=== PATIENT | female | born 1980 | race American Indian/Alaskan Native ===

== ENCOUNTER 2017-09-19 00:45 | Emergency (ER) | payer OTHER ==
[2017-09-19] MEDS ORDERED: ASPIRIN PO ONE (01:23)
[2017-09-19 01:59] LABS: Basophils # (Auto) 0.1 K/mm3 (0.0-0.1); Basophils % (Auto) 0.5 % (0.0-1.8); Eosinophils # (Auto) 0.3 K/mm3 (0.0-0.4); Eosinophils % (Auto) 2.3 % (0.0-4.3); Hematocrit 35.8 % (30.3-42.9); Hemoglobin 11.4 gm/dl (10.1-14.3); Lymphocytes % (Auto) 23.8 % (13.4-35.0); Mean Corpuscular HGB Conc 32 % (30-34); Mean Corpuscular Hemoglobin 27 pg (28-32); Mean Corpuscular Volume 85 fl (79-97); Monocytes # (Auto) 0.8 K/mm3 (0.0-0.8); Monocytes % (Auto) 6.4 % (0.0-7.3); Platelet Count 357 K/mm3 (140-440); Red Blood Count 4.22 M/mm3 (3.65-5.03); Red Cell Distribution Width 16.1 % (13.2-15.2)
[2017-09-19 02:18] LABS: BUN/Creatinine Ratio 13; Blood Urea Nitrogen 10 mg/dL (7-17); Calcium 8.7 mg/dL (8.4-10.2); Hemolysis Index 0
--- NOTE | 2017-09-19 03:50 | XRay Report ---
FINAL REPORT PROCEDURE: XR CHEST ROUTINE 2V TECHNIQUE: PA and lateral chest radiographs were obtained. CPT 17651 HISTORY: chest pain COMPARISON: No prior studies are available for comparison. FINDINGS: Heart: Normal. Mediastinum/Vessels: Normal. Lungs/Pleural space: Normal. Bony thorax: No acute osseous abnormality. Other: IMPRESSION: Normal examination.
[2017-09-19] MEDS ORDERED: LASIX PO ONE (04:09)
[2017-09-19] MEDS ORDERED: HCTZ PO ONE (04:09)
[2017-09-19] MEDS ORDERED: NORVASC PO ONE (04:09)
--- NOTE | 2017-09-19 05:07 | Emergency Department Report ---
ED Chest Pain HPI - General Chief Complaint: Chest Pain Stated Complaint: CP Time Seen by Provider: 09/19/17 02:45 Source: patient Mode of arrival: Ambulatory Limitations: No Limitations - History of Present Illness Initial Comments: 3 wks of intermittent bilateral CP that is nonradiating, nonexertional, nonpleuritic. Her legs have become more swollen lately. It is associated with shortness of breath. Smokes. No fam hx of ACS. Denies drinking or drug use. Severity scale (0 -10): 5 - Related Data Home Medications Medication Instructions Recorded Confirmed Last Taken Amlodipine Besylate 10 mg PO DAILY 04/06/14 04/06/14 04/05/14 19:00 Potassium Citrate [Potassium 15 meq PO DAILY 04/06/14 04/06/14 04/05/14 19:00 Citrate ER] Triamterene/Hydrochlorothiazid 1 tab PO DAILY 04/06/14 04/06/14 04/05/14 19:00 [Triamterene-Hctz 37.5-25 mg] acetaZOLAMIDE [Acetazolamide] 500 mg PO DAILY 04/06/14 04/06/14 04/05/14 19:00 Previous Rx's Medication Instructions Recorded Last Taken Type Furosemide [Lasix] 20 mg PO DAILY #7 tablet 09/19/17 Unknown Rx Allergies Allergy/AdvReac Type Severity Reaction Status Date / Time No Known Allergies Allergy Verified 04/06/14 13:47 Heart Score - HEART Score History: Slightly suspicious EKG: Normal Age: < 45 Risk factors: 1-2 risk factors Troponin: < normal limit HEART Score: 1 ED Review of Systems ROS: Stated complaint: CP Other details as noted in HPI Comment: All other systems reviewed and negative Respiratory: shortness of breath Cardiovascular: chest pain, edema ED Past Medical Hx - Past Medical History Previous Medical History?: Yes Hx Hypertension: Yes - Surgical History Past Surgical History?: Yes Additional Surgical History: c sec X 1 laproscopic sx - Social History Smoking Status: Current Every Day Smoker Substance Use Type: None - Medications Home Medications: Home Medications Medication Instructions Recorded Confirmed Last Taken Type Amlodipine Besylate 10 mg PO DAILY 04/06/14 04/06/14 04/05/14 19:00 History Potassium Citrate [Potassium 15 meq PO DAILY 04/06/14 04/06/14 04/05/14 19:00 History Citrate ER] Triamterene/Hydrochlorothiazid 1 tab PO DAILY 04/06/14 04/06/14 04/05/14 19:00 History [Triamterene-Hctz 37.5-25 mg] acetaZOLAMIDE [Acetazolamide] 500 mg PO DAILY 04/06/14 04/06/14 04/05/14 19:00 History Furosemide [Lasix] 20 mg PO DAILY #7 tablet 09/19/17 Unknown Rx ED Physical Exam - General Limitations: No Limitations General appearance: alert, in no apparent distress - Head Head exam: Present: atraumatic, normocephalic - Eye Eye exam: Present: normal appearance - ENT ENT exam: Present: mucous membranes moist - Neck Neck exam: Present: normal inspection - Respiratory Respiratory exam: Present: normal lung sounds bilaterally. Absent: respiratory distress - Cardiovascular Cardiovascular Exam: Present: regular rate, normal rhythm, JVD. Absent: systolic murmur, diastolic murmur, rubs, gallop - GI/Abdominal GI/Abdominal exam: Present: soft, normal bowel sounds. Absent: tenderness - Extremities Exam Extremities exam: Present: normal inspection, pedal edema (2+ bilateral pedal edema) - Back Exam Back exam: Present: normal inspection - Neurological Exam Neurological exam: Present: alert, oriented X3 - Psychiatric Psychiatric exam: Present: normal affect, normal mood - Skin Skin exam: Present: warm, dry, intact, normal color. Absent: rash ED Course Vital Signs 09/19/17 09/19/17 09/19/17 00:59 02:52 04:20 Temperature 98.2 F 97.9 F Pulse Rate 88 89 94 H Respiratory 20 14 Rate Blood Pressure 234/115 200/94 Blood Pressure 217/120 [Left] O2 Sat by Pulse 98 100 Oximetry ED Medical Decision Making - Lab Data Result diagrams: 09/19/17 01:37 09/19/17 01:37 - EKG Data -: EKG Interpreted by Md EKG shows normal: sinus rhythm, axis, intervals, QRS complexes, ST-T waves Rate: normal - EKG Data Interpretation: no acute changes - Radiology Data Radiology results: report reviewed, image reviewed - Medical Decision Making 37-year-old female with past medical history of hypertension who presents to the ER with chest pain, shortness of breath, and bilateral lower extremity swelling. Vital signs are significant for hypertension with a systolic blood pressure in the low 200s. Patient is well-appearing. Lab work is unremarkable. Chest x-ray is without focal process. EKG is nonischemic. On exam, patient appears to be fluid overloaded. She has JVD and 2+ bilateral pitting edema. Given history of hypertension that seems poorly controlled, I'm concern for new onset heart failure. Patient was given 60 mg oral Lasix in the ER, as well as her home blood pressure medication. She'll be started on a week of 20 mg oral Lasix. The patient has a family physician. I've instructed her to follow up with them within the next week for further cardiac evaluation and likely ultrasound of her heart. Low suspicion for ACS or PE. Patient has no respiratory issues at this time in the ER even though she has shortness of breath. I believe that she is safe for discharge for further workup in the outpatient setting. Patient is agreeable to this option. She has been given breathing information on heart failure. Patient is cleared for discharge. - Differential Diagnosis CHF, ACS, PE, PTX, PNA, dissection, malignant HTN Critical care attestation.: If time is entered above; I have spent that time in minutes in the direct care of this critically ill patient, excluding procedure time. ED Disposition Clinical Impression: Heart failure, Hypertension Disposition: [id number]-01 TO HOME OR SELFCARE Is pt being admited?: No Does the pt Need Aspirin: No Condition: Stable Instructions: Hypertension (ED), Heart Failure (ED) Additional Instructions: Please follow up with your family doctor with in the next week to have your chest pain and hypertension further evaluated. The ER physician is concerned that you are developing early onset congestive heart failure. You likely will need an echo for further evaluation. Prescriptions: Furosemide [Lasix] 20 mg PO DAILY #7 tablet
[2017-09-19 05:57] VITALS: BP 188/97
== END 2017-09-19 05:35 | disposition home or self-care (01) ==
LOC: ED 00:45
DX: I50.9 Heart failure, unspecified (principal); I10 Essential (primary) hypertension; F17.200 Nicotine dependence, unspecified, uncomplicated
CPT/HCPCS: 36415; 71046; 80048; 84484; 84703; 85025; 93005; 93010

== ENCOUNTER 2018-12-09 08:09 | Emergency (ER) | payer OTHER ==
[2018-12-09] MEDS ORDERED: ASPIRIN 325 MG TAB PO ONE (08:22)
[2018-12-09 08:43] LABS: Basophils # (Auto) 0.2 K/mm3 (0.0-0.1); Basophils % (Auto) 1.5 % (0.0-1.8); Eosinophils # (Auto) 0.1 K/mm3 (0.0-0.4); Eosinophils % (Auto) 1.5 % (0.0-4.3); Hematocrit 37.4 % (30.3-42.9); Hemoglobin 12.5 gm/dl (10.1-14.3); Lymphocytes # (Auto) 2.1 K/mm3 (1.2-5.4); Lymphocytes % (Auto) 21.5 % (13.4-35.0); Mean Corpuscular HGB Conc 34 % (30-34); Mean Corpuscular Volume 89 fl (79-97); Monocytes # (Auto) 0.6 K/mm3 (0.0-0.8); Platelet Count 312 K/mm3 (140-440); Red Blood Count 4.19 M/mm3 (3.65-5.03); Red Cell Distribution Width 15.5 % (13.2-15.2)
--- NOTE | 2018-12-09 09:01 | XRay Report ---
CHEST 2 VIEWS INDICATION / CLINICAL INFORMATION: Piercing chest pain for 2 days. COMPARISON: 09/19/2017. FINDINGS: SUPPORT DEVICES: None. HEART / MEDIASTINUM: The heart size is borderline with a left ventricular configuration. There is mil d aortic tortuosity without aneurysm. Pulmonary vasculature is normal. LUNGS / PLEURA: No significant pulmonary or pleural abnormality. No pneumothorax. ADDITIONAL FINDINGS: No significant additional findings. IMPRESSION: No acute findings. Signer Name: Nuno Wilder MD Signed: 12/09/2018 8:57 AM Workstation Name: [id number]
--- NOTE | 2018-12-09 09:03 | Emergency Department Report ---
ED Chest Pain HPI - General Chief Complaint: Chest Pain Stated Complaint: CHEST PAIN Time Seen by Provider: 12/09/18 08:51 Source: patient Mode of arrival: Ambulatory Limitations: No Limitations - History of Present Illness Initial Comments: This is a 38-year-old -[place] female who presents to the emergency room with left-sided chest pain for 2 days. Patient states symptoms started yesterday and increased overnight. Past medical history of hypertension. Patient has a current smoker one pack per day. Patient states when she woke up this morning she felt like someone was stabbing her in the chest and felt pressure epigastric chest. Pain is nonradiating pain. She also reports having a cough for 1 month. She was seen by her primary care provider last week and placed on Z-Sung and steroids. She reports taking medication for 3-4 days. She denies fever, chills, nausea, vomiting, diarrhea, palpitations, or shortness of breath. MD Complaint: chest pain Onset/Timin -: days(s) Onset: awoke with symptoms Pain Location: left chest Pain Radiation: none Severity: moderate Severity scale (0 -10): 7 Quality: tightness Consistency: intermittent Improves With: nothing Worsens With: nothing Context: recent illness Other Symptoms: cough. denies: fever, syncope, rash, acid taste in mouth, leg swelling, palpitations, burping Treatments Prior to Arrival: other (currently taking antibiotics and steroids) Aspirin use within the Past 7 Days: (0) No - Related Data On Oral Contraceptives: No Home Medications Medication Instructions Recorded Confirmed Last Taken Amlodipine Besylate 10 mg PO DAILY 04/06/14 04/06/14 04/05/14 19:00 Potassium Citrate [Potassium 15 meq PO DAILY 04/06/14 04/06/14 04/05/14 19:00 Citrate ER] Triamterene/Hydrochlorothiazid 1 tab PO DAILY 04/06/14 04/06/14 04/05/14 19:00 [Triamterene-Hctz 37.5-25 mg] acetaZOLAMIDE [Acetazolamide] 500 mg PO DAILY 04/06/14 04/06/14 04/05/14 19:00 Previous Rx's Medication Instructions Recorded Last Taken Type Furosemide [Lasix] 20 mg PO DAILY #7 tablet 09/19/17 Unknown Rx Famotidine [Pepcid] 40 mg PO QHS #30 tablet 12/09/18 Unknown Rx Allergies Allergy/AdvReac Type Severity Reaction Status Date / Time No Known Allergies Allergy Verified 04/06/14 13:47 Heart Score - HEART Score History: Slightly suspicious EKG: Normal Age: < 45 Risk factors: 1-2 risk factors Troponin: < normal limit HEART Score: 1 - Critical Actions Critical Actions: 0-3 pts:0.9-1.7%risk of adverse cardiac event.Candidate for discharge ED Review of Systems ROS: Stated complaint: CHEST PAIN Other details as noted in HPI ED Past Medical Hx - Past Medical History Hx Hypertension: Yes - Surgical History Additional Surgical History: c sec X 1 laproscopic sx - Social History Smoking Status: Unknown if ever smoked Substance Use Type: None - Medications Home Medications: Home Medications Medication Instructions Recorded Confirmed Last Taken Type Amlodipine Besylate 10 mg PO DAILY 04/06/14 04/06/14 04/05/14 19:00 History Potassium Citrate [Potassium 15 meq PO DAILY 04/06/14 04/06/14 04/05/14 19:00 History Citrate ER] Triamterene/Hydrochlorothiazid 1 tab PO DAILY 04/06/14 04/06/14 04/05/14 19:00 History [Triamterene-Hctz 37.5-25 mg] acetaZOLAMIDE [Acetazolamide] 500 mg PO DAILY 04/06/14 04/06/14 04/05/14 19:00 History Furosemide [Lasix] 20 mg PO DAILY #7 tablet 09/19/17 Unknown Rx Famotidine [Pepcid] 40 mg PO QHS #30 tablet 12/09/18 Unknown Rx ED Physical Exam - General Limitations: No Limitations General appearance: alert, in no apparent distress, obese (morbidly) - ENT ENT exam: Present: mucous membranes moist - Neck Neck exam: Present: normal inspection - Respiratory Respiratory exam: Present: normal lung sounds bilaterally. Absent: respiratory distress, wheezes, rales, rhonchi, stridor, chest wall tenderness, accessory muscle use, decreased breath sounds - Cardiovascular Cardiovascular Exam: Present: regular rate, normal rhythm. Absent: systolic murmur, diastolic murmur, rubs, gallop - GI/Abdominal GI/Abdominal exam: Present: soft, normal bowel sounds. Absent: distended, tenderness, guarding, rebound, rigid - Neurological Exam Neurological exam: Present: alert, oriented X3, normal gait - Psychiatric Psychiatric exam: Present: normal affect, normal mood - Skin Skin exam: Present: warm, dry, intact, normal color. Absent: rash ED Course Vital Signs 12/09/18 08:44 Temperature 98.0 F Pulse Rate 98 H Respiratory 16 Rate Blood Pressure 181/88 O2 Sat by Pulse 98 Oximetry ED Medical Decision Making - Lab Data Result diagrams: 12/09/18 08:27 12/09/18 08:27 Lab Results 12/09/18 12/09/18 12/09/18 Range/Units 08:27 08:27 12:23 WBC 9.9 (4.5-11.0) K/mm3 RBC 4.19 (3.65-5.03) M/mm3 Hgb 12.5 (10.1-14.3) gm/dl Hct 37.4 (30.3-42.9) % MCV 89 (79-97) fl MCH 30 (28-32) pg MCHC 34 (30-34) % RDW 15.5 H (13.2-15.2) % Plt Count 312 (140-440) K/mm3 Lymph % (Auto) 21.5 (13.4-35.0) % [place] % (Auto) 6.0 (0.0-7.3) % Eos % (Auto) 1.5 (0.0-4.3) % Baso % (Auto) 1.5 (0.0-1.8) % Lymph # 2.1 (1.2-5.4) K/mm3 [place] # 0.6 (0.0-0.8) K/mm3 Eos # 0.1 (0.0-0.4) K/mm3 Baso # 0.2 H (0.0-0.1) K/mm3 Seg Neutrophils % 69.5 (40.0-70.0) % Seg Neutrophils # 6.9 (1.8-7.7) K/mm3 Sodium 141 (137-145) mmol/L Potassium 3.2 L (3.6-5.0) mmol/L Chloride 99.7 (98-107) mmol/L Carbon Dioxide 25 (22-30) mmol/L Anion Gap 20 mmol/L BUN 11 (7-17) mg/dL Creatinine 0.9 (0.7-1.2) mg/dL Estimated GFR > 60 ml/min BUN/Creatinine Ratio 12 % Glucose 155 H (65-100) mg/dL Calcium 8.9 (8.4-10.2) mg/dL Troponin T < 0.010 < 0.010 (0.00-0.029) ng/mL - EKG Data -: No EKG Interpreted by Me (EKG interpreted by attending) EKG shows normal: sinus rhythm Rate: normal - Radiology Data Radiology results: report reviewed CHEST 2 VIEWS INDICATION / CLINICAL INFORMATION: Piercing chest pain for 2 days. COMPARISON: 09/19/2017. FINDINGS: SUPPORT DEVICES: None. HEART / MEDIASTINUM: The heart size is borderline with a left ventricular configuration. There is mild aortic tortuosity without aneurysm. Pulmonary vasculature is normal. LUNGS / PLEURA: No significant pulmonary or pleural abnormality. No pneumothorax. ADDITIONAL FINDINGS: No significant additional findings. IMPRESSION: No acute findings. - Medical Decision Making This patient was seen by this provider. Past medical history of hypertension. Vitals are stable and patient is in no acute distress. Patient given analgesics for pain. Labs, EKG, and chest x-ray were obtained. All labs are remarkable with 2 negative troponins. The EKG was interpreted by the attending normal sinus rhythm with no STEMI elevation. Patient is a current smoker. Chest x-ray was negative for acute cardiopulmonary findings. She is recovering from bronch itis and currently taken antibiotics and steroids. Instructed to continue current medication. Trauma on the Pepcid to rule out GERD. Follow-up with her primary care doctor. Discussed plan with patient and agreed to plan. No further questions noted by the patient. Discharged home in stable condition. Follow up with PCP in 1 week. Critical care attestation.: If time is entered above; I have spent that time in minutes in the direct care of this critically ill patient, excluding procedure time. ED Disposition Clinical Impression: Chest pain Qualifiers: Chest pain type: other chest pain Qualified Code(s): R07.89 - Other chest pain; R07.8 - Other chest pain Disposition: - TO HOME OR SELFCARE Is pt being admited?: No Does the pt Need Aspirin: No Condition: Stable Instructions: Chest Pain (ED) Additional Instructions: Follow-up with your primary care doctor. Complete the medications prescribed by your primary care provider for bronchitis. If you continue to feel worsening chest pain, palpitations, shortness of breath, or radiating pain return to the emergency room as soon as possible. Prescriptions: Famotidine [Pepcid] 40 mg PO QHS #30 tablet Referrals: HILARIA MORRIS MD [Referring] - 3-5 Days [facility] - [facility]-5 Days Forms: Work/School Release Form(ED) Time of Disposition: 13:12
[2018-12-09 09:15] LABS: BUN/Creatinine Ratio 12; Blood Urea Nitrogen 11 mg/dL (7-17); Calcium 8.9 mg/dL (8.4-10.2); Hemolysis Index 0
[2018-12-09] MEDS ORDERED: IBUPROFEN 600 MG TAB PO ONE (12:51)
[2018-12-09 13:22] VITALS: BP 192/90
== END 2018-12-09 13:25 | disposition home or self-care (01) ==
LOC: ED 08:09
DX: R07.89 Other chest pain (principal); I10 Essential (primary) hypertension; F17.200 Nicotine dependence, unspecified, uncomplicated; Z79.899 Other long term (current) drug therapy
CPT/HCPCS: 36415; 71046; 80048; 84484; 85025; 93005; 93010; 99284

== ENCOUNTER 2020-05-28 21:42 | Inpatient (IN) | payer OTHER ==
[2020-05-28] MEDS ORDERED: FUROSEMIDE 40 MG/4 ML INJ IV ONE (21:43)
--- NOTE | 2020-05-28 21:52 | Emergency Department Report ---
HPI - General Time Seen by Provider: 05/28/20 21:43 - HPI HPI: Room 3 The patient is a 39-year-old female present with a chief complaint of shortness of breath. Per EMS the patient was recently diagnosed with CHF and has an upcoming appointment with a certified ophthalmic medical technician. Per EMS the patient began developing worsening shortness of breath tonight. Upon EMS arrival the patient was found to be hypoxic to 62% on room air. Patient was placed on CPAP with supplemental O2 by EMS and her sats improved to over 95%. Patient denies chest pain fever cough nausea or vomiting. Patient only complains of shortness of breath and headache ED Past Medical Hx - Past Medical History Hx Hypertension: Yes Hx Congestive Heart Failure: Yes - Surgical History Additional Surgical History: c sec X 1 laproscopic sx - Family History Family history: no significant - Social History Smoking Status: Unknown if ever smoked Substance Use Type: None - Medications Home Medications: Home Medications Medication Instructions Recorded Confirmed Last Taken Type Amlodipine Besylate 10 mg PO DAILY 04/06/14 04/06/14 04/05/14 19:00 History Potassium Citrate [Potassium 15 meq PO DAILY 04/06/14 04/06/14 04/05/14 19:00 History Citrate ER] Triamterene/Hydrochlorothiazid 1 tab PO DAILY 04/06/14 04/06/14 04/05/14 19:00 History [Triamterene-Hctz 37.5-25 mg] acetaZOLAMIDE [Acetazolamide] 500 mg PO DAILY 04/06/14 04/06/14 04/05/14 19:00 History Furosemide [Lasix] 20 mg PO DAILY #7 tablet 09/19/17 Unknown Rx Famotidine [Pepcid] 40 mg PO QHS #30 tablet 12/09/18 Unknown Rx ED Review of Systems ROS: Stated complaint: EFFIE Other details as noted in HPI Constitutional: denies: fever Eyes: denies: eye pain ENT: denies: throat pain Respiratory: shortness of breath Cardiovascular: denies: chest pain Endocrine: no symptoms reported Gastrointestinal: denies: abdominal pain Genitourinary: denies: dysuria Musculoskeletal: denies: back pain Neurological: headache Physical Exam - Physical Exam Physical Exam: GENERAL: The patient is well-developed well-nourished female lying on stretcher exhibiting increased work of breathing on CPAP. [] HEENT: Normocephalic. Atraumatic. Extraocular motions are intact. Patient has moist mucous membranes. NECK: Supple. Trachea midline CHEST/LUNGS: Tachypnea with occasional crackles at the base. There is accessory muscle use HEART/CARDIOVASCULAR: Regular. There is no tachycardia. There is no gallop rub or murmur. ABDOMEN: Abdomen is soft, nontender. Patient has normal bowel sounds. There is no abdominal distention. SKIN: There is no rash. There is 2+ bilateral lower extremity pitting edema. T here is no diaphoresis. NEURO: The patient is awake, alert, and oriented. The patient is cooperative. The patient has normal speech MUSCULOSKELETAL: There is no evidence of acute injury. ED Medical Decision Making - Lab Data Result diagrams: 05/28/20 21:49 Laboratory Tests 05/28/20 05/28/20 05/28/20 21:49 21:49 21:49 WBC 12.3 H RBC 3.88 Hgb 11.0 Hct 34.1 MCV 88 MCH 28 MCHC 32 RDW 16.8 H Plt Count 330 Lymph % (Auto) 29.2 [place] % (Auto) 5.1 Eos % (Auto) 2.5 Baso % (Auto) 0.8 Lymph # (Auto) 3.6 [place] # (Auto) 0.6 Eos # (Auto) 0.3 Baso # (Auto) 0.1 Seg Neutrophils % 62.4 Seg Neutrophils # 7.7 PT 12.3 INR 0.93 Sodium 136 L Potassium 3.5 L Chloride 98.8 Carbon Dioxide 20 L Anion Gap 21 BUN 12 Creatinine 1.1 Estimated GFR > 60 BUN/Creatinine Ratio 11 Glucose 255 H Calcium 8.7 Total Bilirubin 0.20 AST 29 ALT 21 Alkaline Phosphatase 90 Total Creatine Kinase 152 H CK-MB (CK-2) 2.4 CK-MB (CK-2) Rel Index 1.5 Troponin T < 0.010 NT-Pro-B Natriuret Pep 866.4 H Total Protein 7.4 Albumin 3.7 L Albumin/Globulin Ratio 1.0 - EKG Data -: EKG Interpreted by Me EKG shows normal: sinus rhythm Rate: normal - EKG Data When compared to previous EKG there are: no significant change Interpretation: unchanged when compared t (12/09/2018) - Radiology Data Radiology results: report reviewed (Chest x-ray), image reviewed (Chest x-ray) interpreted by me: Chest [id number] opacities. No pneumothorax. No foreign body seen [facility] [address] [place] [address] XRay Report Signed Patient: ILIA FRIEND MR#: [id number] : 1980 Acct:[id number] Age/Sex: 39 / F ADM Date: 05/28/20 Loc: ED Attending Dr: Ordering Physician: OKSANA AYALA MD Date of Service: 05/28/20 Procedure(s): XR chest 1V ap Accession Number(s): [id number] cc: OKSANA AYALA MD Fluoro Time In Minutes: CHEST 1 VIEW INDICATION / CLINICAL INFORMATION: Shortness of breath. COMPARISON: 12/09/2018 FINDINGS: SUPPORT DEVICES: None. HEART / MEDIASTINUM: No significant abnormality. LUNGS / PLEURA: The lungs are grossly clear. There is limited visualization of both lower lobes due to overlapping dense breast tissue. No pneumothorax. ADDITIONAL FINDINGS: No significant additional findings. IMPRESSION: 1. No gross acute pulmonary or pleural disease. There is limited visualization of both lower lobes due to dense overlying breast tissue. Signer Name: Veronica Schwartz MD Signed: 05/28/2020 10:07 PM Workstation Name: [id number] Transcribed By: JR Dictated By: Veronica Schwartz MD Electronically Authenticated By: Veronica Schwartz MD Signed Date/Time: 05/28/202206 DD/ 05 TD/TT: Print Cancel - Differential Diagnosis CHF exacerbation, pneumonia, bronchitis Critical care attestation.: If time is entered above; I have spent that time in minutes in the direct care of this critically ill patient, excluding procedure time. ED Disposition Clinical Impression: CHF exacerbation, Hypoxia, Uncontrolled hypertension Disposition: OP ADMIT IP TO THIS HOSP Is pt being admited?: Yes Does the pt Need Aspirin: Yes Condition: Fair Instructions: Hypertension (ED) Time of Disposition: 22:33 (Hospitalist paged (Dr Gold))
[2020-05-28 22:01] LABS: Basophils # (Auto) 0.1 K/mm3 (0.0-0.1); Basophils % (Auto) 0.8 % (0.0-1.8); Eosinophils # (Auto) 0.3 K/mm3 (0.0-0.4); Eosinophils % (Auto) 2.5 % (0.0-4.3); Hematocrit 34.1 % (30.3-42.9); Lymphocytes # (Auto) 3.6 K/mm3 (1.2-5.4); Lymphocytes % (Auto) 29.2 % (13.4-35.0); Mean Corpuscular HGB Conc 32 % (30-34); Mean Corpuscular Volume 88 fl (79-97); Monocytes # (Auto) 0.6 K/mm3 (0.0-0.8); Monocytes % (Auto) 5.1 % (0.0-7.3); Platelet Count 330 K/mm3 (140-440); Red Blood Count 3.88 M/mm3 (3.65-5.03); Red Cell Distribution Width 16.8 % (13.2-15.2)
--- NOTE | 2020-05-28 22:12 | XRay Report ---
CHEST 1 VIEW INDICATION / CLINICAL INFORMATION: Shortness of breath. COMPARISON: 12/09/2018 FINDINGS: SUPPORT DEVICES: None. HEART / MEDIASTINUM: No significant abnormality. LUNGS / PLEURA: The lungs are grossly clear. There is limited visualization of both lower lobes due t o overlapping dense breast tissue. No pneumothorax. ADDITIONAL FINDINGS: No significant additional findings. IMPRESSION: 1. No gross acute pulmonary or pleural disease. There is limited visualization of both lower lobes du e to dense overlying breast tissue. Signer Name: Veronica Schwartz MD Signed: 05/28/2020 10:07 PM Workstation Name: [id number]
[2020-05-28 22:15] LABS: INR 0.93 (0.87-1.13)
[2020-05-28] MEDS ORDERED: NITROGLYCERIN DRIP 50 MG/250 ML BOTTLE IV ONE (22:21)
[2020-05-28 22:23] LABS: Creatine Kinase MB 2.4 ng/mL (0.0-4.0)
[2020-05-28 22:24] LABS: Alanine Aminotransferase 21 units/L (7-56); Albumin 3.7 g/dL (3.9-5); BUN/Creatinine Ratio 11; Blood Urea Nitrogen 12 mg/dL (7-17); Calcium 8.7 mg/dL (8.4-10.2); Hemolysis Index 16
[2020-05-28] MEDS ORDERED: ASPIRIN 325 MG TAB PO ONE (22:33)
[2020-05-28] MEDS ORDERED: NITROGLYCERIN 2% OINT 1 GM TP ONE (22:36)
--- NOTE | 2020-05-28 23:13 | History and Physical Report ---
History of Present Illness Date of examination: 05/28/20 Date of admission: 05/28/20 22:37 Chief complaint: Shortness of Breath History of present illness: 39-year-old female with significant history of CHF presenting to the emergency room via EMS today complaining of shortness of breath. According to EMS patient was found to be hypoxic with oxygen saturation in the 60s on room air and was immediately placed on CPAP with supplemental oxygen with improvement of oxygen saturation to 95%. Patient denies any fever or chills, no chest pain, no cough, no nausea or vomiting, no abdominal pain. He has had occasional headaches. Patient was just recently diagnosed with CHF and has an upcoming appointment with a territory account executive. Work-up in the emergency room today reveals: Elevated BNP. Chest x-ray did not reveal any acute abnormality. Patient is being admitted with CHF exacerbation. Past History Past Medical History: heart failure, hypertension Past Surgical History: Social history: no significant social history Family history: no significant family history Medications and Allergies Allergies Allergy/AdvReac Type Severity Reaction Status Date / Time No Known Allergies Allergy Verified 04/06/14 13:47 Home Medications Medication Instructions Recorded Confirmed Last Taken Type Furosemide [Lasix] 20 mg PO DAILY #7 tablet 09/19/17 05/29/20 Unknown Rx Iron,Carbonyl/Ascorbic Acid [Iron 1 each PO DAILY 05/29/20 05/29/20 Unknown History 100-Vitamin C Tablet] [place]-3 Fatty Acids/Fish Oil [Fish 1 each PO DAILY 05/29/20 05/29/20 Unknown History Oil] Vitamin E (Dl,Tocopheryl Acet) 180 mg PO DAILY 05/29/20 05/29/20 Unknown History [Vitamin E] carvediloL [Coreg] 12.5 mg PO BID 05/29/20 05/29/20 Unknown History hydrALAZINE [Apresoline] 25 mg PO Q8HR 05/29/20 05/29/20 Unknown History lisinopriL [Lisinopril] 20 mg PO DAILY 05/29/20 05/29/20 Unknown History metFORMIN XR [Glucophage XR] 500 mg PO BID 05/29/20 05/29/20 Unknown History Review of Systems Constitutional: no fever, no chills Ears, nose, mouth and throat: no nasal congestion, no sore throat Cardiovascular: orthopnea, no chest pain, no palpitations Respiratory: shortness of breath, no cough Gastrointestinal: no abdominal pain, no nausea, no vomiting, no diarrhea Genitourinary Female: no pelvic pain, no flank pain, no dysuria, no hematuria Musculoskeletal: no neck pain, no low back pain Integumentary: no rash, no pruritis Neurological: no headaches, no confusion Psychiatric: no anxiety, no depression Exam - Constitutional Vitals: Temp Pulse Resp BP Pulse Ox 95 H 18 167/92 98 05/28/20 22:50 05/28/20 22:35 05/28/20 22:50 05/28/20 22:35 General appearance: Present: mild distress, obese - EENT Eyes: Present: PERRL, EOM intact. Absent: scleral icterus ENT: hearing intact, clear oral mucosa, dentition normal - Neck Neck: Present: supple, normal ROM - Respiratory Respiratory effort: normal Respiratory: bilateral: rales - Cardiovascular Rhythm: regular Heart Sounds: Present: S1 & S2. Absent: gallop, systolic murmur, diastolic murmur, rub, click - Extremities Extremities: no ischemia, pulses intact, pulses symmetrical, No edema, normal temperature, normal color, Full ROM Peripheral Pulses: within normal limits - Abdominal General gastrointestinal: Present: soft, non-tender, distended, normal bowel sounds. Absent: mass - Integumentary Integumentary: Present: clear, warm, dry. Absent: rash - Musculoskeletal Musculoskeletal: strength equal bilaterally - Psychiatric Psychiatric: appropriate mood/affect, intact judgment & insight, memory intact, cooperative - Neurologic Neurologic: CNII-XII intact, no focal deficits, moves all extremities HEART Score - HEART Score Troponin: Troponin T < 0.010 ng/mL (0.00-0.029) 05/28/20 21:49 Results - Labs CBC & Chem 7: 05/28/20 21:49 05/28/20 21:49 Labs: Abnormal lab results 05/28/20 05/28/20 Range/Units 21:49 21:49 WBC 12.3 H (4.5-11.0) K/mm3 RDW 16.8 H (13.2-15.2) % Sodium 136 L (137-145) mmol/L Potassium 3.5 L (3.6-5.0) mmol/L Carbon Dioxide 20 L (22-30) mmol/L Glucose 255 H (65-100) mg/dL Total Creatine Kinase 152 H (30-135) units/L NT-Pro-B Natriuret Pep 866.4 H (0-450) pg/mL Albumin 3.7 L (3.9-5) g/dL Assessment and Plan - Patient Problems (1) CHF exacerbation Current Visit: Yes Status: Acute Plan to address problem: Patient placed on diuretics. Will monitor inputs and outputs and also monitor daily weight. Patient will be scheduled for echocardiogram. We will consult cardiology for evaluation. (2) Hypoxia Current Visit: Yes Status: Acute Plan to address problem: Possibly secondary to the CHF. Patient currently on BIPAP. We will keep oxygen saturation greater equal to 92%. (3) Uncontrolled hypertension Current Visit: Yes Status: Acute Plan to address problem: We will resume routine home medications and monitor vital signs closely. (4) DVT prophylaxis Current Visit: Yes Status: Acute Plan to address problem: Patient placed on subcutaneous Lovenox. (5) Full code status Current Visit: Yes Status: Acute Plan to address problem: Patient is full code.
[2020-05-28] MEDS ORDERED: ACETAMINOPHEN 325 MG TAB PO PRN (23:16)
[2020-05-28] MEDS ORDERED: MAGNESIUM HYDROXIDE (MOM) ORAL LIQD UDC PO PRN (23:16)
[2020-05-28] MEDS ORDERED: ONDANSETRON 4 MG/2 ML INJ IV PRN (23:16)
[2020-05-29] MEDS ORDERED: hydrALAZINE 20 MG/1 ML INJ IV PRN (04:56)
[2020-05-29] MEDS: FUROSEMIDE 40 MG/4 ML INJ IV SCH ×2 (06:45→17:56)
[2020-05-29 08:01] LABS: Basophils # (Auto) 0.1 K/mm3 (0.0-0.1); Basophils % (Auto) 0.8 % (0.0-1.8); Eosinophils # (Auto) 0.2 K/mm3 (0.0-0.4); Eosinophils % (Auto) 1.6 % (0.0-4.3); Hemoglobin 10.1 gm/dl (10.1-14.3); Lymphocytes % (Auto) 18.3 % (13.4-35.0); Mean Corpuscular HGB Conc 33 % (30-34); Mean Corpuscular Volume 86 fl (79-97); Monocytes # (Auto) 0.6 K/mm3 (0.0-0.8); Monocytes % (Auto) 5.4 % (0.0-7.3); Platelet Count 298 K/mm3 (140-440); Red Blood Count 3.62 M/mm3 (3.65-5.03); Red Cell Distribution Width 16.3 % (13.2-15.2)
[2020-05-29 08:13] LABS: INR 1.03 (0.87-1.13)
[2020-05-29 08:16] LABS: BUN/Creatinine Ratio 13; Blood Urea Nitrogen 12 mg/dL (7-17); Calcium 8.7 mg/dL (8.4-10.2); Hemolysis Index 0
--- NOTE | 2020-05-29 10:49 | Progress Note ---
Assessment and Plan --Acute on chronic systolic CHF exacerbation Patient placed on diuretics. Will monitor inputs and outputs and also monitor daily weight. Patient will be scheduled for echocardiogram. consulted cardiology for evaluation. --Acute hypoxic respiratory failure Possibly secondary to the CHF. Patient currently on BIPAP. We will keep oxygen saturation greater equal to 92%. -- Uncontrolled hypertension Resumed routine home medications and monitor vital signs closely. --Morbid obesity, diet and exercise recommendation on discharge when clinically more stable Also need outpatient sleep study -- DVT prophylaxis Patient placed on subcutaneous Lovenox. --Full code status Daily clinical course: 05/29/20; follow 2d echo, cont diuresis, monitor ins/os, follow cardiology recommendation Subjective Date of service: 05/29/20 Interval history: Patient seen and examined. Medical records and medication list reviewed. No acute event overnight noted by the RN. Patient remains on BiPAP. Patient is tolerating diet. Discussed plan of care at bedside with patient. Objective - Exam Narrative Exam: GENERAL: Morbidly obese -Georgian female lying on bed appeared to be in no discomfort. HEENT: Normocephalic. Atraumatic. No conjunctival congestion or icterus. Patient has moist mucous membranes. NECK: Supple. Trachea midline. CHEST/LUNGS: Diminished breath sounds auscultated bilaterally, breathing on BiPAP. HEART/CARDIOVASCULAR: Regular in rate and rhythm. S1 and S2 positive. ABDOMEN: Abdomen is soft, nontender. Patient has normal bowel sounds. SKIN: There is no rash. Warm and dry. NEURO: No focal motor deficit. Follows command. MUSCULOSKELETAL: No joint effusion or tenderness. EXTRIMITY: No edema, no cyanosis or clubbing. PSYCH: Cooperative. - Constitutional Vitals: Vital Signs - 12hr 05/28/20 05/28/20 05/28/20 22:46 22:50 23:00 Temperature Pulse Rate 95 H 95 H 97 H Respiratory 26 H 23 Rate Blood Pressure 167/92 167/92 167/92 Blood Pressure [Left] O2 Sat by Pulse 100 100 Oximetry 05/28/20 05/28/20 05/28/20 23:16 23:27 23:30 Temperature Pulse Rate 90 89 Respiratory 28 H 20 27 H Rate Blood Pressure 177/92 177/92 Blood Pressure [Left] O2 Sat by Pulse 100 100 Oximetry 05/28/20 05/28/20 05/29/20 23:45 23:46 00:00 Temperature Pulse Rate 96 H 96 H 98 H Respiratory 25 H 31 H 32 H Rate Blood Pressure 188/93 180/92 180/92 Blood Pressure [Left] O2 Sat by Pulse 100 97 96 Oximetry 05/29/20 05/29/20 05/29/20 00:16 00:30 00:46 Temperature Pulse Rate 97 H 91 H 91 H Respiratory 25 H 32 H 17 Rate Blood Pressure 190/99 162/72 169/104 Blood Pressure [Left] O2 Sat by Pulse 99 98 90 Oximetry 05/29/20 05/29/20 05/29/20 01:00 01:16 01:30 Temperature Pulse Rate 92 H 89 91 H Respiratory 24 23 29 H Rate Blood Pressure 169/104 181/96 181/96 Blood Pressure [Left] O2 Sat by Pulse 98 95 99 Oximetry 05/29/20 05/29/20 05/29/20 02:00 02:02 02:04 Temperature 98.4 F Pulse Rate 90 93 H 93 H Respiratory 27 H 24 29 H Rate Blood Pressure 164/82 Blood Pressure [Left] O2 Sat by Pulse 100 93 Oximetry 05/29/20 05/29/20 05/29/20 04:04 08:03 09:18 Temperature 98.4 F 98.5 F Pulse Rate 90 98 H Respiratory 23 18 17 Rate Blood Pressure 171/77 Blood Pressure 164/80 [Left] O2 Sat by Pulse 100 91 Oximetry 05/29/20 09:19 Temperature Pulse Rate 81 Respiratory Rate Blood Pressure 171/85 Blood Pressure [Left] O2 Sat by Pulse Oximetry - Labs CBC & Chem 7: 05/29/20 07:39 05/29/20 07:39 Labs: Abnormal lab results 05/28/20 05/28/20 05/29/20 Range/Units 21:49 21:49 07:39 WBC 12.3 H (4.5-11.0) K/mm3 RBC 3.62 L (3.65-5.03) M/mm3 RDW 16.8 H 16.3 H (13.2-15.2) % Seg Neutrophils % 73.9 H (40.0-70.0) % Seg Neutrophils # 8.1 H (1.8-7.7) K/mm3 Sodium 136 L (137-145) mmol/L Potassium 3.5 L (3.6-5.0) mmol/L Carbon Dioxide 20 L (22-30) mmol/L Glucose 255 H (65-100) mg/dL Total Creatine Kinase 152 H (30-135) units/L NT-Pro-B Natriuret Pep 866.4 H (0-450) pg/mL Albumin 3.7 L (3.9-5) g/dL 05/29/20 Range/Units 07:39 WBC (4.5-11.0) K/mm3 RBC (3.65-5.03) M/mm3 RDW (13.2-15.2) % Seg Neutrophils % (40.0-70.0) % Seg Neutrophils # (1.8-7.7) K/mm3 Sodium (137-145) mmol/L Potassium 3.5 L (3.6-5.0) mmol/L Carbon Dioxide (22-30) mmol/L Glucose 138 H (65-100) mg/dL Total Creatine Kinase (30-135) units/L NT-Pro-B Natriuret Pep (0-450) pg/mL Albumin (3.9-5) g/dL HEART Score - HEART Score Troponin: Troponin T < 0.010 ng/mL (0.00-0.029) 05/28/20 21:49
[2020-05-29] MEDS: LISINOPRIL 20 MG TAB PO SCH (11:35)
[2020-05-29] MEDS: carvediloL 12.5 MG TAB PO SCH ×2 (11:35→22:11)
[2020-05-29] MEDS ORDERED: BUTALB/ACETAMINOPHEN/CAFFEINE TAB PO PRN (11:38)
--- NOTE | 2020-05-29 12:13 | Consultation ---
History of Present Illness Consult date: 05/29/20 Consult reason: congestive heart failure, shortness of breath History of present illness: The patient is a 39-year-old woman who presented with shortness of breath and severe uncontrolled hypertension, admitted with a diagnosis of congestive heart failure. She reports that she was recently hospitalized for 5 days at [facility] with similar diagnosis. We do not have the records to review the details of any cardiac work-up during those 5 days at [facility]. The patient has no chest pain, no palpitations and only minimal lower extremity edema. EKG is normal sinus rhythm with a nonspecific intraventricular conduction delay, poor R wave progression across the precordium. No acute ST or T wave abnormalities. Chest x-ray reveals a mild to moderate severity cardiomegaly, no acute interstitial edema. Past History Past Medical History: heart failure, hypertension Past Surgical History: Social history: no significant social history Family history: no significant family history Medications and Allergies Allergies Allergy/AdvReac Type Severity Reaction Status Date / Time No Known Allergies Allergy Verified 04/06/14 13:47 Home Medications Medication Instructions Recorded Confirmed Last Taken Type Furosemide [Lasix] 20 mg PO DAILY #7 tablet 09/19/17 05/29/20 Unknown Rx Iron,Carbonyl/Ascorbic Acid [Iron 1 each PO DAILY 05/29/20 05/29/20 Unknown History 100-Vitamin C Tablet] [place]-3 Fatty Acids/Fish Oil [Fish 1 each PO DAILY 05/29/20 05/29/20 Unknown History Oil] Vitamin E (Dl,Tocopheryl Acet) 180 mg PO DAILY 05/29/20 05/29/20 Unknown History [Vitamin E] carvediloL [Coreg] 12.5 mg PO BID 05/29/20 05/29/20 Unknown History hydrALAZINE [Apresoline] 25 mg PO Q8HR 05/29/20 05/29/20 Unknown History lisinopriL [Lisinopril] 20 mg PO DAILY 05/29/20 05/29/20 Unknown History metFORMIN XR [Glucophage XR] 500 mg PO BID 05/29/20 05/29/20 Unknown History Active Meds: Active Medications Acetaminophen (Acetaminophen 325 Mg Tab) 650 mg PO Q4H PRN PRN Reason: Pain MILD(1-3)/Fever >100.5/ALMANZA Last Admin: 05/29/20 09:18 Dose: 650 mg Documented by: Acetaminophen/Butalbital/Caffeine (Butalb/Acetaminophen/Caffeine Tab) 1 tab PO Q4H PRN PRN Reason: Headache Carvedilol (Carvedilol 12.5 Mg Tab) 12.5 mg PO BID [facility] Last Admin: 05/29/20 11:35 Dose: 12.5 mg Documented by: Enoxaparin Sodium (Enoxaparin 40 Mg/0.4 Ml Inj) 40 mg SUB-Q QDAY@2200 [facility]; Protocol Fish Oil ([place]-3 Fatty Acids/Fish Oil 1 Gram Cap) 1,000 mg PO DAILY [facility] Furosemide (Furosemide 40 Mg/4 Ml Inj) 40 mg IV BID@0600,1800 [facility] Last Admin: 05/29/20 06:45 Dose: 40 mg Documented by: Hydralazine HCl (Hydralazine 20 Mg/1 Ml Inj) 20 mg IV Q4H PRN PRN Reason: Blood Pressure Last Admin: 05/29/20 09:19 Dose: 20 mg Documented by: Hydralazine HCl (Hydralazine 25 Mg Tab) 25 mg PO Q8HR [facility] Lisinopril (Lisinopril 20 Mg Tab) 20 mg PO DAILY [facility] Last Admin: 05/29/20 11:35 Dose: 20 mg Documented by: Magnesium Hydroxide (Magnesium Hydroxide (Mom) Oral Liqd Udc) 30 ml PO Q4H PRN PRN Reason: Constipation Ondansetron HCl (Ondansetron 4 Mg/2 Ml Inj) 4 mg IV Q8H PRN PRN Reason: Nausea And Vomiting Sodium Chloride (Sodium Chloride 0.9% 10 Ml Flush Syringe) 10 ml IV BID [facility] Last Admin: 05/29/20 09:25 Dose: 10 ml Documented by: Sodium Chloride (Sodium Chloride 0.9% 10 Ml Flush Syringe) 10 ml IV PRN PRN PRN Reason: LINE FLUSH Vitamin E (Tocopherol 200 Unit Cap) 200 unit PO QDAY [facility] Review of Systems Cardiovascular: shortness of breath, no chest pain, no orthopnea, no palpitations, no rapid/irregular heart beat, no edema, no syncope, no lightheadedness Physical Examination Vital Signs Pulse Resp BP Pulse Ox 106 H 32 H 210/112 100 05/28/20 21:50 05/28/20 21:50 05/28/20 21:50 05/28/20 21:50 General appearance: no acute distress HEENT: Positive: PERRL Neck: Positive: neck supple Cardiac: Positive: Reg Rate and Rhythm Lungs: Positive: Decreased Breath Sounds Neuro: Positive: Grossly Intact Abdomen: Positive: Soft Female genitourinary: deferred Skin: Positive: Clear Extremities: Absent: edema Results 05/29/20 07:39 05/29/20 07:39 Cardiac Enzymes 05/28/20 Range/Units 21:49 AST 29 (5-40) units/L CK-MB (CK-2) 2.4 (0.0-4.0) ng/mL Coagulation 05/28/20 05/29/20 Range/Units 21:49 07:39 PT 12.3 13.3 (12.2-14.9) Sec. INR 0.93 1.03 (0.87-1.13) CBC 05/28/20 05/29/20 Range/Units 21:49 07:39 WBC 12.3 H 11.0 (4.5-11.0) K/mm3 RBC 3.88 3.62 L (3.65-5.03) M/mm3 Hgb 11.0 10.1 (10.1-14.3) gm/dl Hct 34.1 31.0 (30.3-42.9) % Plt Count 330 298 (140-440) K/mm3 Lymph # (Auto) 3.6 2.0 (1.2-5.4) K/mm3 [place] # (Auto) 0.6 0.6 (0.0-0.8) K/mm3 Eos # (Auto) 0.3 0.2 (0.0-0.4) K/mm3 Baso # (Auto) 0.1 0.1 (0.0-0.1) K/mm3 Comprehensive Metabolic Panel 05/28/20 05/29/20 Range/Units 21:49 07:39 Sodium 136 L 139 (137-145) mmol/L Potassium 3.5 L 3.5 L (3.6-5.0) mmol/L Chloride 98.8 101.7 (98-107) mmol/L Carbon Dioxide 20 L 28 D (22-30) mmol/L BUN 12 12 (7-17) mg/dL Creatinine 1.1 0.9 (0.6-1.2) mg/dL Glucose 255 H 138 H (65-100) mg/dL Calcium 8.7 8.7 (8.4-10.2) mg/dL AST 29 (5-40) units/L ALT 21 (7-56) units/L Alkaline Phosphatase 90 (35-129) units/L Total Protein 7.4 (6.3-8.2) g/dL Albumin 3.7 L (3.9-5) g/dL EKG interpretations - Telemetry EKG Rhythm: Sinus Rhythm Assessment and Plan - Patient Problems (1) CHF exacerbation Current Visit: Yes Status: Acute Plan to address problem: Patient presents with shortness of breath and suspected fluid overload and congestive heart failure. Chest x-ray shows moderate severity cardiomegaly, and EKG shows a nonspecific intraventricular conduction delay and poor R wave progression across the precordium. The patient was recently hospitalized at [facility], we will request those records for further review of any recent cardiac work-up. Otherwise, we will continue diuretic therapy and restrict salt intake, daily weights and strict I's and O's.
[2020-05-29] MEDS: hydrALAZINE 25 MG TAB PO SCH ×2 (13:05→22:12)
[2020-05-29] MEDS ORDERED: ENOXAPARIN 40 MG/0.4 ML INJ SUB-Q SCH (22:00)
[2020-05-30] MEDS: FUROSEMIDE 40 MG/4 ML INJ IV SCH (06:47)
[2020-05-30] MEDS: hydrALAZINE 25 MG TAB PO SCH (06:47)
[2020-05-30] MEDS ORDERED: VITAMIN E 100 UNIT PO SCH (10:00)
[2020-05-30] MEDS ORDERED: TOCOPHEROL 200 UNIT CAP PO SCH (10:00)
[2020-05-30] MEDS ORDERED: OMEGA-3 FATTY ACIDS/FISH OIL 1 GRAM CAP PO SCH (10:00)
[2020-05-30] MEDS ORDERED: CHOLECALCIFEROL (VIT D3) 400 UNIT TAB PO SCH (10:00)
[2020-05-30] MEDS: LISINOPRIL 20 MG TAB PO SCH (10:14)
[2020-05-30] MEDS: carvediloL 12.5 MG TAB PO SCH (10:14)
[2020-05-30 12:37] VITALS: BP 153/70
--- NOTE | 2020-05-30 13:02 | Progress Note ---
Assessment and Plan - Patient Problems (1) CHF exacerbation Current Visit: Yes Status: Acute Plan to address problem: Awaiting on records from [facility] for cardiac review. Continue medical therapy for CHF exacerbation. Fluid restriction and low sodium diet. Daily weights and strict I's and O's. (2) Uncontrolled hypertension Current Visit: Yes Status: Acute Plan to address problem: Will discontinue Zestril and Hydralazine. Will use Valsartan 160 mg twice daily for optimal BP management. Subjective Date of service: 05/30/20 Interval history: Patient is resting in bed and appears comfortable. She reports her breathing is better. BP is uncontrolled, systolic ranging 150's to 170's. Objective Vital Signs Temp Pulse Resp BP BP Pulse Ox 05/30/20 11:38 98.3 F 87 17 153/70 93 05/30/20 08:18 80 100 05/30/20 07:42 98.3 F 73 18 170/86 98 05/30/20 06:47 78 159/80 05/30/20 02:04 81 137/69 05/29/20 23:00 92 H 18 98 05/29/20 22:12 92 H 186/90 05/29/20 22:11 92 H 186/90 05/29/20 20:46 98 05/29/20 19:31 97.9 F 95 H 19 184/95 91 05/29/20 16:19 98.7 F 91 H 18 144/69 97 05/29/20 15:00 103 H 05/29/20 14:03 15 05/29/20 13:05 98 H 153/73 05/29/20 13:03 17 - Physical Examination General: No Apparent Distress, Other (obese) HEENT: Positive: PERRL Neck: Positive: neck supple Cardiac: Positive: Reg Rate and Rhythm Lungs: Positive: Normal Breath Sounds Neuro: Positive: Grossly Intact Abdomen: Positive: Soft Extremities: Absent: edema
[2020-05-30] MEDS ORDERED: VALSARTAN 160MG TAB PO SCH (14:00)
[2020-05-30] MEDS ORDERED: POTASSIUM CHLORIDE ER 20 MEQ TAB PO SCH (15:00)
--- NOTE | 2020-05-30 15:11 | Progress Note ---
Assessment and Plan --Acute on chronic systolic CHF exacerbation Patient placed on diuretics. Will monitor inputs and outputs and also monitor daily weight. Patient will be scheduled for echocardiogram. consulted cardiology for evaluation. --Acute hypoxic respiratory failure Possibly secondary to the CHF. Patient currently on BIPAP. We will keep oxygen saturation greater equal to 92%. -- Uncontrolled hypertension Resumed routine home medications and monitor vital signs closely. --Morbid obesity, diet and exercise recommendation on discharge when clinically more stable Also need outpatient sleep study -- DVT prophylaxis Patient placed on subcutaneous Lovenox. --Full code status Daily clinical course: 05/29/20; follow 2d echo, cont diuresis, monitor ins/os, follow cardiology recommendation 05/30: Continue diuresis for CHF, monitor ins and outs, adjust BP medications. Possible DC when cleared by cardiology and respiratory silva more stable Subjective Date of service: 05/30/20 Objective - Constitutional Vitals: Vital Signs - 12hr 05/30/20 05/30/20 05/30/20 06:47 07:42 08:18 Temperature 98.3 F Pulse Rate 78 73 80 Respiratory 18 Rate Blood Pressure 159/80 170/86 O2 Sat by Pulse 98 100 Oximetry 05/30/20 11:38 Temperature 98.3 F Pulse Rate 87 Respiratory 17 Rate Blood Pressure 153/70 O2 Sat by Pulse 93 Oximetry - Labs CBC & Chem 7: 05/29/20 07:39 05/29/20 07:39 HEART Score - HEART Score Troponin: Troponin T < 0.010 ng/mL (0.00-0.029) 05/28/20 21:49
[2020-05-30] MEDS ORDERED: INSULIN REGULAR, HUMAN 100 UNITS/1 ML SUB-Q SCH (16:30)
[2020-05-30] MEDS ORDERED: POTASSIUM CHLORIDE ER 20 MEQ TAB PO NR (16:52)
--- NOTE | 2020-05-30 16:57 | Discharge Summary ---
Providers - Providers Date of Admission: 05/28/20 22:37 Date of discharge: 05/30/20 Attending physician: LETICIA SANCHEZ 05/28/20 23:16 Consult to Physician [CONS] Routine Comment: Consulting Provider: EMILY RYAN Physician Instructions: Reason For Exam: ChF Exacerbation Primary care physician: [facility] Hospitalization Reason for admission: Difficulty breathing Condition: Fair Hospital course: 39-year-old morbidly obese female with significant history of CHF presenting to the emergency room via EMS complaining of shortness of breath. According to EMS patient was found to be hypoxic with oxygen saturation in the 60s on room air and was immediately placed on CPAP with supplemental oxygen with improvement of oxygen saturation to 95%. Patient was just recently diagnosed with CHF and has an upcoming appointment with a wharf tally clerk. Work-up in the emergency room today reveals: Elevated BNP. Chest x-ray did not reveal any acute abnormality. Patient was admitted for CHF exacerbation and acute hypoxic respiratory failure. Patient was admitted to telemetry floor with scheduled iv diuretics. She was placed on continuous BiPAP and weaned off as tolerated. Monitored with serial CE, EKG. Cardiology consulted, medical records from [facility] reviewed which showed 2d echo results with preserved EF and diastolic dysfunction. Provided cardiac diet, daily weights, monitored in's and O's, BP medications adjusted. Patients symptom improved with medical management. Patient was then discharged home in stable condition with outpt f/u. Daily clinical course: 05/29/20; follow 2d echo, cont diuresis, monitor ins/os, follow cardiology recommendation 05/30/20: Continue diuresis for CHF, monitor ins and outs, adjust BP medications. Possible DC when cleared by cardiology and respiratory silva more stable 05/03/20: Patient weaned off from the BiPAP and resting on room air. 2D echo obtained at [facility] reviewed and that showed preserved EF with diastolic dysfunction. Cardiology recommended optimized medical management and outpatient follow-up. Patient will be discharged home in stable condition and she will follow up with cardiology in 1 week. Discharge diagnosis and management; --Acute on chronic diastolic CHF exacerbation Patient placed on diuretics, monitor ins and outs, daily weight. 2D echo obtained recently at [facility] showed preserved EF with diastolic dysfunction consulted cardiology for evaluation and recommended outpatient follow-up with optimized medical management --Acute hypoxic respiratory failure Possibly secondary to the CHF. Status post BiPAP with supplemental O2, resolved with diuresis -- Uncontrolled hypertension Resumed routine home medications and further adjusted for better control, monitored vital signs closely. --Morbid obesity, diet and exercise recommendation provided on discharge --Obstructive sleep apnea, patient uses CPAP machine at home, counseled for compliance care Dr. Marc -- DVT prophylaxis Patient placed on subcutaneous Lovenox. --Full code status Disposition: [id number] HOME UNDER HOME HLTH Final Discharge Diagnosis (Prints w/discharge instructions): Acute on chronic diastolic HF. Morbid obesity. CABRERA. HTN, uncontrolled. Acute hypoxic respiratory failure Time spent for discharge: 34 minutes Core Measure Documentation - Palliative Care Palliative Care/ Comfort Measures: Not Applicable - Core Measures Any of the following diagnoses?: none Exam - Physical Exam Narrative exam: GENERAL: Morbidly obese -French female lying on bed appeared to be in no discomfort. HEENT: Normocephalic. Atraumatic. No conjunctival congestion or icterus. Patient has moist mucous membranes. NECK: Supple. Trachea midline. CHEST/LUNGS: + breath sounds auscultated bilaterally, breathing on RA HEART/CARDIOVASCULAR: Regular in rate and rhythm. S1 and S2 positive. ABDOMEN: Abdomen is soft, nontender. Patient has normal bowel sounds. SKIN: There is no rash. Warm and dry. NEURO: No focal motor deficit. Follows command. MUSCULOSKELETAL: No joint effusion or tenderness. EXTRIMITY: No edema, no cyanosis or clubbing. PSYCH: Cooperative. - Constitutional Vitals: Temp Pulse Resp BP Pulse Ox 98.3 F 87 17 143/70 93 05/30/20 11:38 05/30/20 11:38 05/30/20 11:38 05/30/20 11:38 05/30/20 11:38 Plan Activity: advance as tolerated Weight Bearing Status: Weight Bear as Tolerated Diet: low fat, low salt Additional Instructions: f/u with your wharf tally clerk in one week Follow up with: PRIMARY CARE, [Primary Care Provider] - 7 Days Prescriptions: Spironolactone [Aldactone] 25 mg PO QDAY #30 tablet Valsartan [Diovan] 160 mg PO BID #60 tablet
[2020-05-31] MEDS ORDERED: ASPIRIN EC 81 MG TAB PO SCH (10:00)
[2020-05-31] MEDS ORDERED: SPIRONOLACTONE 25 MG TAB PO SCH (10:00)
--- NOTE | 2020-06-01 10:52 | Electrocardiograph Report ---
[facility] Test Date: 2020-05-28 Test Time: 21:57:14 Pat Name: ILIA PHUC Department: Room: A485 1 Gender: F Sane Nurse: SUZANNE : 1980 Requested By: OKSANA AYALA Order Number: [id number] Reading MD: Elvin Horne Measurements Intervals [place] Rate: 107 P: 55 NM: 157 QRS: -11 QRSD: 98 T: 87 QT: 389 QTc: 520 Interpretive Statements Sinus tachycardia Probable left atrial enlargement Consider anterior infarct Prolonged QT interval No previous ECG available for comparison Electronically Signed On 06-01-2020 7:52:13 PDT by Elvin Horne
== END 2020-05-30 17:58 | disposition home health service (06) | DRG 291 ==
LOC: ED 21:42 → 4A 22:37
PROVIDERS: ADMIT Internal Medicine Geriatric Medicine; ATTEND Internal Medicine
PROC: 5A09357 Assistance with Respiratory Ventilation, Less than 24 Consecutive Hours, Continuous Positive Airway Pressure (ICD-10-PCS; principal; 2020-05-28)
PROC: 5A09357 Assistance with Respiratory Ventilation, Less than 24 Consecutive Hours, Continuous Positive Airway Pressure (ICD-10-PCS; 2020-05-29)
PROC: 5A09357 Assistance with Respiratory Ventilation, Less than 24 Consecutive Hours, Continuous Positive Airway Pressure (ICD-10-PCS; 2020-05-30)
DX: I11.0 Hypertensive heart disease with heart failure (principal); J96.01 Acute respiratory failure with hypoxia; Z68.42 Body mass index [BMI] 45.0-49.9, adult; I50.33 Acute on chronic diastolic (congestive) heart failure; E66.01 Morbid (severe) obesity due to excess calories; Z79.899 Other long term (current) drug therapy; Z79.84 Long term (current) use of oral hypoglycemic drugs
CPT/HCPCS: 36415; 71045; 80048; 80053; 82550; 82553; 82962; 83880; 84484; 85025; 85610; 93005; 94660; 96374; 99406; G0378; J0360; J1650; J1940